=== PATIENT | male | born 1980 | race Two or more races ===

== ENCOUNTER 2024-11-06 09:50 | Emergency (ER) | payer MEDICARE, OTHER ==
[~2024-11-06] VITALS: Ht 172.7 cm; Wt 69.9 kg
[2024-11-06 09:51] VITALS: BP 108/69; TEMP 99.1
[2024-11-06] MEDS ORDERED: ALBU18HF2 INH (10:59)
[2024-11-06] MEDS ORDERED: PRED20TA PO (10:59)
[2024-11-06] MEDS ORDERED: BENZ-13 PO (10:59)
[2024-11-06 11:15] VITALS: O2SAT 100
== END 2024-11-06 11:19 | disposition home or self-care (01) ==
LOC: ER 09:59
DX: J45.901 Unspecified asthma with (acute) exacerbation (principal); J06.9 Acute upper respiratory infection, unspecified; Z88.5 Allergy status to narcotic agent; Z20.822 Contact with and (suspected) exposure to COVID-19; Z60.2 Problems related to living alone